=== PATIENT | female | born 1965 | race African-American/Black ===

== ENCOUNTER 2020-04-18 10:48 | Inpatient (IN) | payer OTHER ==
[2020-04-18] MEDS ORDERED: MENTHOL/PHENOL 1 EACH UD MM PRN (12:19)
[2020-04-18] MEDS ORDERED: ACETAMINOPHEN 325 MG TABLET (FP) PO PRN (12:19)
[2020-04-18] MEDS ORDERED: MAG HYDROX/AL HYDROX/SIMETH 30 ML UNIT-DOSE CUP PO PRN (12:19)
[2020-04-18] MEDS ORDERED: MAGNESIUM CITRATE 300 ML BOTTLE PO PRN (12:19)
[2020-04-18] MEDS ORDERED: MAGNESIUM HYDROX 2400MG/30ML ORAL SUSPENSION 30 ML CUP PO PRN (12:19)
[2020-04-18] MEDS ORDERED: NICOTINE POLACRILEX 2 MG GUM BUC PRN (12:19)
[2020-04-18] MEDS ORDERED: IBUPROFEN 400 MG TABLET (FP) PO PRN (12:19)
[2020-04-18] MEDS ORDERED: guaiFENesin 200 MG/10 ML 10 ML UNIT-DOSE CUPS PO PRN (12:19)
[2020-04-18] MEDS ORDERED: P-EPHED 60MG/TRIPROLIDI 2.5MG TABLET PO PRN (12:19)
[2020-04-18] MEDS ORDERED: LOPERAMIDE HCL 2 MG CAPSULE PO PRN (12:19)
[2020-04-18] MEDS ORDERED: ETANERCEPT 50 MG SQ SCH (12:30)
[2020-04-18] MEDS ORDERED: SUVOREXANT 10 MG TABLET PO PRN (12:31)
[2020-04-18] MEDS: THIAMINE HCL 100 MG TABLET (FP) PO SCH (21:11)
[2020-04-18] MEDS ORDERED: MELATONIN 5 MG TABLETS PO SCH (22:00)
[2020-04-19] MEDS ORDERED: PT OWN MED DRAWER 7, Y5N ONE ×2 (03:19→09:11)
[2020-04-19] MEDS: LEVOTHYROXINE NA 25 MCG TABLET (FP) PO SCH (06:36)
[2020-04-19] MEDS: FERROUS SO4 325 MG TABLET (FP) PO SCH (09:53)
[2020-04-19] MEDS: PRENATAL VITAMINS W/ FOLIC ACID TABLET (FP) PO SCH (09:53)
[2020-04-19] MEDS: CHOLECALCIFEROL (VIT D3) 1,000 UNIT (25 MCG) TABLET PO SCH (09:54)
[2020-04-19] MEDS: NICOTINE 14 MG/24 HOURS TOPICAL PATCH TD SCH (09:54)
[2020-04-19] MEDS ORDERED: PATIENT'S OWN MEDICATION (NON-FORMULARY) (Ferrous Sulfate [Feosol] 325 MG) PO SCH (10:00)
[2020-04-19] MEDS ORDERED: NICOTINE 7 MG/24 HOURS TOPICAL PATCH TD SCH (10:00)
[2020-04-19] MEDS: SUVOREXANT 10 MG TABLET PO PRN (21:09)
[2020-04-19] MEDS: MELATONIN 5 MG TABLETS PO SCH (21:09)
[2020-04-19] MEDS: THIAMINE HCL 100 MG TABLET (FP) PO SCH (21:09)
[2020-04-20] MEDS ORDERED: PT OWN MED DRAWER 7, Y5N ONE ×2 (05:29→08:59)
[2020-04-20] MEDS: LEVOTHYROXINE NA 25 MCG TABLET (FP) PO SCH (06:51)
[2020-04-20] MEDS: FERROUS SO4 325 MG TABLET (FP) PO SCH (10:12)
[2020-04-20] MEDS: CHOLECALCIFEROL (VIT D3) 1,000 UNIT (25 MCG) TABLET PO SCH (10:12)
[2020-04-20] MEDS: PRENATAL VITAMINS W/ FOLIC ACID TABLET (FP) PO SCH (10:12)
[2020-04-20] MEDS: NICOTINE 14 MG/24 HOURS TOPICAL PATCH TD SCH (10:12)
[2020-04-20] MEDS: NIFEdipine E.R. 30 MG TABLET PO SCH (10:14)
[2020-04-20] MEDS ORDERED: ETANERCEPT 50 MG SQ SCH (12:30)
[2020-04-20] MEDS: SUVOREXANT 10 MG TABLET PO PRN (21:15)
[2020-04-20] MEDS: THIAMINE HCL 100 MG TABLET (FP) PO SCH (21:15)
[2020-04-20] MEDS: MELATONIN 5 MG TABLETS PO SCH (23:38)
[2020-04-21] MEDS ORDERED: PT OWN MED DRAWER 7, Y5N ONE ×4 (05:25→19:29)
[2020-04-21] MEDS: LEVOTHYROXINE NA 25 MCG TABLET (FP) PO SCH (07:05)
[2020-04-21] MEDS: NICOTINE 14 MG/24 HOURS TOPICAL PATCH TD SCH (09:32)
[2020-04-21] MEDS: FERROUS SO4 325 MG TABLET (FP) PO SCH (09:32)
[2020-04-21] MEDS: PRENATAL VITAMINS W/ FOLIC ACID TABLET (FP) PO SCH (09:32)
[2020-04-21] MEDS: NIFEdipine E.R. 30 MG TABLET PO SCH (09:33)
[2020-04-21] MEDS: CHOLECALCIFEROL (VIT D3) 1,000 UNIT (25 MCG) TABLET PO SCH (09:33)
[2020-04-21] MEDS: THIAMINE HCL 100 MG TABLET (FP) PO SCH (21:32)
[2020-04-21] MEDS: MELATONIN 5 MG TABLETS PO SCH (21:32)
[2020-04-21] MEDS: hydrOXYzine PAMOATE 25 MG CAPSULE (FP) PO PRN (21:33)
[2020-04-21] MEDS: SUVOREXANT 10 MG TABLET PO PRN (21:33)
[2020-04-22] MEDS ORDERED: PT OWN MED DRAWER 7, Y5N ONE (05:26)
[2020-04-22] MEDS: LEVOTHYROXINE NA 25 MCG TABLET (FP) PO SCH (07:14)
[2020-04-22] MEDS ORDERED: ETANERCEPT 50 MG SQ SCH (10:00)
[2020-04-22] MEDS: NICOTINE 14 MG/24 HOURS TOPICAL PATCH TD SCH (10:20)
[2020-04-22] MEDS: FERROUS SO4 325 MG TABLET (FP) PO SCH (10:20)
[2020-04-22] MEDS: PRENATAL VITAMINS W/ FOLIC ACID TABLET (FP) PO SCH (10:20)
[2020-04-22] MEDS: CHOLECALCIFEROL (VIT D3) 1,000 UNIT (25 MCG) TABLET PO SCH (10:21)
[2020-04-22] MEDS: NIFEdipine E.R. 30 MG TABLET PO SCH (10:21)
[2020-04-22] MEDS: MELATONIN 5 MG TABLETS PO SCH (21:20)
[2020-04-22] MEDS: hydrOXYzine PAMOATE 25 MG CAPSULE (FP) PO PRN (21:21)
[2020-04-22] MEDS: THIAMINE HCL 100 MG TABLET (FP) PO SCH (21:21)
[2020-04-23] MEDS: LEVOTHYROXINE NA 25 MCG TABLET (FP) PO SCH (07:02)
[2020-04-23] MEDS: FERROUS SO4 325 MG TABLET (FP) PO SCH (09:52)
[2020-04-23] MEDS: NICOTINE 14 MG/24 HOURS TOPICAL PATCH TD SCH (09:52)
[2020-04-23] MEDS: CHOLECALCIFEROL (VIT D3) 1,000 UNIT (25 MCG) TABLET PO SCH (09:53)
[2020-04-23] MEDS: NIFEdipine E.R. 30 MG TABLET PO SCH (09:53)
[2020-04-23] MEDS: PRENATAL VITAMINS W/ FOLIC ACID TABLET (FP) PO SCH (09:53)
[2020-04-23] MEDS: THIAMINE HCL 100 MG TABLET (FP) PO SCH (21:04)
[2020-04-23] MEDS: hydrOXYzine PAMOATE 25 MG CAPSULE (FP) PO PRN (21:04)
[2020-04-23] MEDS: SUVOREXANT 10 MG TABLET PO PRN (21:04)
[2020-04-23] MEDS: MELATONIN 5 MG TABLETS PO SCH (21:04)
[2020-04-24] MEDS: LEVOTHYROXINE NA 25 MCG TABLET (FP) PO SCH (07:22)
[2020-04-24] MEDS ORDERED: PT OWN MED DRAWER 7, Y5N ONE (09:09)
[2020-04-24] MEDS: FERROUS SO4 325 MG TABLET (FP) PO SCH (09:50)
[2020-04-24] MEDS: PRENATAL VITAMINS W/ FOLIC ACID TABLET (FP) PO SCH (09:50)
[2020-04-24] MEDS: NICOTINE 14 MG/24 HOURS TOPICAL PATCH TD SCH (09:50)
[2020-04-24] MEDS: CHOLECALCIFEROL (VIT D3) 1,000 UNIT (25 MCG) TABLET PO SCH (09:51)
[2020-04-24] MEDS: NIFEdipine E.R. 30 MG TABLET PO SCH (09:51)
[2020-04-24] MEDS: THIAMINE HCL 100 MG TABLET (FP) PO SCH (21:09)
[2020-04-24] MEDS: MELATONIN 5 MG TABLETS PO SCH (21:09)
[2020-04-24] MEDS: SUVOREXANT 10 MG TABLET PO PRN (21:09)
[2020-04-25] MEDS: LEVOTHYROXINE NA 25 MCG TABLET (FP) PO SCH (07:06)
[2020-04-25] MEDS ORDERED: PT OWN MED DRAWER 7, Y5N ONE ×2 (08:47→10:11)
[2020-04-25] MEDS: NICOTINE 14 MG/24 HOURS TOPICAL PATCH TD SCH (10:02)
[2020-04-25] MEDS: PRENATAL VITAMINS W/ FOLIC ACID TABLET (FP) PO SCH (10:03)
[2020-04-25] MEDS: FERROUS SO4 325 MG TABLET (FP) PO SCH (10:03)
[2020-04-25] MEDS: NIFEdipine E.R. 30 MG TABLET PO SCH (10:03)
[2020-04-25] MEDS: CHOLECALCIFEROL (VIT D3) 1,000 UNIT (25 MCG) TABLET PO SCH (10:49)
[2020-04-25] MEDS: SUVOREXANT 10 MG TABLET PO PRN (21:03)
[2020-04-25] MEDS: hydrOXYzine PAMOATE 25 MG CAPSULE (FP) PO PRN (21:03)
[2020-04-25] MEDS: MELATONIN 5 MG TABLETS PO SCH (21:03)
[2020-04-25] MEDS: THIAMINE HCL 100 MG TABLET (FP) PO SCH (21:03)
[2020-04-26] MEDS: LEVOTHYROXINE NA 25 MCG TABLET (FP) PO SCH (06:27)
[2020-04-26] MEDS ORDERED: PT OWN MED DRAWER 7, Y5N ONE (09:01)
[2020-04-26] MEDS: FERROUS SO4 325 MG TABLET (FP) PO SCH (10:11)
[2020-04-26] MEDS: PRENATAL VITAMINS W/ FOLIC ACID TABLET (FP) PO SCH (10:11)
[2020-04-26] MEDS: NICOTINE 14 MG/24 HOURS TOPICAL PATCH TD SCH (10:11)
[2020-04-26] MEDS: NIFEdipine E.R. 30 MG TABLET PO SCH (10:12)
[2020-04-26] MEDS: CHOLECALCIFEROL (VIT D3) 1,000 UNIT (25 MCG) TABLET PO SCH (10:12)
[2020-04-26] MEDS: SUVOREXANT 10 MG TABLET PO PRN (21:26)
[2020-04-26] MEDS: THIAMINE HCL 100 MG TABLET (FP) PO SCH (21:27)
[2020-04-26] MEDS: MELATONIN 5 MG TABLETS PO SCH (21:27)
[2020-04-27 07:02] VITALS: TEMP 97.1
[2020-04-27 07:04] VITALS: BP 73/48; PULSE 135
[2020-04-27] MEDS: LEVOTHYROXINE NA 25 MCG TABLET (FP) PO SCH (07:10)
[2020-04-27] MEDS ORDERED: ASPIRIN 81 MG CHEWABLE TABLETS PO ONE (07:17)
[2020-04-27] MEDS ORDERED: PT OWN MED DRAWER 7, Y5N ONE (08:08)
[2020-04-27] MEDS: FERROUS SO4 325 MG TABLET (FP) PO SCH (10:50)
[2020-04-27] MEDS: NICOTINE 14 MG/24 HOURS TOPICAL PATCH TD SCH (10:50)
[2020-04-27] MEDS: PRENATAL VITAMINS W/ FOLIC ACID TABLET (FP) PO SCH (10:51)
[2020-04-27] MEDS: NIFEdipine E.R. 30 MG TABLET PO SCH (10:51)
[2020-04-27] MEDS: CHOLECALCIFEROL (VIT D3) 1,000 UNIT (25 MCG) TABLET PO SCH (10:51)
== END 2020-04-27 15:48 | disposition short-term general hospital (02) | DRG 895 ==
LOC: YASAS 10:48 → Y3E 10:50
PROVIDERS: ADMIT Allergy & Immunology; ATTEND Allergy & Immunology
PROC: HZ42ZZZ Group Counseling for Substance Abuse Treatment, Cognitive-Behavioral (ICD-10-PCS; principal; 2020-04-18)
DX: F10.20 Alcohol dependence, uncomplicated (principal); F17.210 Nicotine dependence, cigarettes, uncomplicated; I10 Essential (primary) hypertension; E03.9 Hypothyroidism, unspecified; D64.9 Anemia, unspecified; M06.9 Rheumatoid arthritis, unspecified; K76.0 Fatty (change of) liver, not elsewhere classified; R94.31 Abnormal electrocardiogram [ECG] [EKG]; I95.9 Hypotension, unspecified; R53.1 Weakness; Z87.01 Personal history of pneumonia (recurrent)
CPT/HCPCS: 82962; 93005; 93010

== ENCOUNTER 2020-04-27 08:05 | Inpatient (IN) | payer OTHER ==
[2020-04-27] MEDS ORDERED: SODIUM CHLORIDE 1,769 ML IV ONE (08:38)
[2020-04-27] MEDS ORDERED: ACETAMINOPHEN 1000 MG/100 ML VIAL (NON FORMULARY) IVPB ONE (08:39)
[2020-04-27] MEDS ORDERED: ACETAMINOPHEN INJECTION 100 ML IVPB ONE (08:41)
[2020-04-27 09:39] LABS: BASO % 0.3 % (0-2.0); EOS % 0.7 % (0-4.5); HEMATOCRIT 36.3 % (32.4-45.2); HEMOGLOBIN 11.7 GM/dL (10.7-15.3); LYMPH % 5.8 % (8-40); MCH 27.6 pg (25.7-33.7); MCHC 32.2 g/dl (32.0-36.0); MEAN CELL VOLUME 85.7 fl (80-96); MEAN PLT VOLUME 8.6 fl (7.5-11.1); NEUT % 89.2 % (42.8-82.8); PLATELET COUNT 274 K/MM3 (134-434); RBC 4.23 M/mm3 (3.60-5.2); WHITE BLOOD COUNT 5.7 K/mm3 (4.0-10.0)
[2020-04-27 09:48] LABS: INR 0.98 (0.83-1.09); PH,URINE 8.5 (5.0-8.0); PROTHROMBIN TIME (PATIENT) 12.1 SEC (9.7-13.0); URINE APPEARANCE CLEAR; URINE BILIRUBIN NEGATIVE (NEGATIVE); URINE COLOR YELLOW; URINE GLUCOSE (UA) NEGATIVE (NEGATIVE); URINE KETONE NEGATIVE (NEGATIVE); URINE LEUK ESTERASE NEGATIVE (NEGATIVE); URINE NITRITE NEGATIVE (NEGATIVE); URINE PROTEIN NEGATIVE (NEGATIVE); URINE UROBILINOGEN 0.2 mg/dL (0.2-1.0)
[2020-04-27 09:50] LABS: ACTIVATED PTT 29.8 SECONDS (25.2-36.5)
[2020-04-27 10:09] LABS: CHLORIDE 104 mmol/L (98-107); POTASSIUM 4.4 mmol/L (3.5-5.1); SODIUM 136 mmol/L (136-145)
[2020-04-27 10:11] LABS: ALBUMIN 3.1 g/dl (3.4-5.0); ANION GAP 6 MMOL/L (8-16); CALCIUM 9.1 mg/dL (8.5-10.1); CO2 26 mmol/L (21-32); GLUCOSE,RANDOM 116 mg/dL (74-106)
[2020-04-27 10:12] LABS: BLOOD UREA NITROGEN 15.7 mg/dL (7-18)
[2020-04-27 10:14] LABS: SGPT/ALT 33 U/L (13-61)
[2020-04-27 10:15] LABS: SGOT/AST 21 U/L (15-37)
[2020-04-27 10:16] LABS: BILIRUBIN,TOTAL 0.3 mg/dL (0.2-1); TOT PROT 7.2 g/dl (6.4-8.2)
[2020-04-27 10:19] LABS: LDH 175 U/L (84-246)
[2020-04-27 10:24] LABS: ALK PHOS 133 U/L (45-117)
[2020-04-27 11:28] LABS: VENOUS BASE EXCESS -1.3 mmol/L (-2-2); VENOUS O2 SATURATION 84.9 % (70-80); VENOUS PH 7.428 (7.310-7.410)
[2020-04-27] MEDS ORDERED: VANCOMYCIN 1 GM in D5W (PRE-DOCKED) 1,000 MG/250 ML IVPB ONE (13:34)
[2020-04-27] MEDS ORDERED: CEFTRIAXONE 1 GM in DEXTROSE 5%-WATER - 100 ML IVPB ONE (13:34)
[2020-04-27] MEDS ORDERED: CEFTRIAXONE 2 GM-D5W BAG 2 GM/50 ML BAG IVPB ONE (13:35)
[2020-04-27] MEDS ORDERED: LACTATED RINGERS SOLUTION 1000 ML INFUS.BAG IV ONE (13:37)
[2020-04-27] MEDS ORDERED: SODIUM CHLORIDE 1,000 ML IV SCH ×2 (14:45→16:28)
[2020-04-27] MEDS ORDERED: VANCOMYCIN 1 GRAM (PRE-DOCKED) 1,000 MG/250 ML BAG IVPB ONE (15:00)
[2020-04-27] MEDS ORDERED: CEFTRIAXONE 2 GM/100 ML BAG IVPB ONE (15:00)
[2020-04-27] MEDS ORDERED: CEFTRIAXONE 1 GM/50 ML BAG ONE (15:01)
[2020-04-27] MEDS ORDERED: ACETAMINOPHEN 325 MG TABLET (FP) PO PRN (16:42)
[2020-04-27 17:01] VITALS: BMI 22.1
[2020-04-27] MEDS: SODIUM CHLORIDE 1,000 ML IV SCH (17:46)
[2020-04-27] MEDS ORDERED: PIPERACILLIN/TAZOB 3.375 GM 3.375 GM in DEXTROSE 5%-WATER - 50 ML IVPB SCH ×2 (18:00→18:10)
[2020-04-28] MEDS: ENOXAPARIN NA (PORCINE) 40 MG/0.4 ML DISP.SYRIN SQ SCH (09:10)
[2020-04-28] MEDS: SODIUM CHLORIDE 1,000 ML IV SCH ×2 (09:11→23:20)
[2020-04-28] MEDS ORDERED: VANCOMYCIN 1 GM in D5W (PRE-DOCKED) 1,000 MG/250 ML IVPB SCH (10:00)
[2020-04-28] MEDS ORDERED: VANCOMYCIN 1,000 MG in DEXTROSE 5%-WATER - 250 ML IVPB SCH (10:00)
[2020-04-28 11:51] LABS: BASO % 0.7 % (0-2.0); EOS % 5.3 % (0-4.5); HEMATOCRIT 31.3 % (32.4-45.2); HEMOGLOBIN 10.3 GM/dL (10.7-15.3); LYMPH % 50.2 % (8-40); MCH 28.5 pg (25.7-33.7); MCHC 32.9 g/dl (32.0-36.0); MEAN CELL VOLUME 86.5 fl (80-96); MEAN PLT VOLUME 8.4 fl (7.5-11.1); MONO % 9.1 % (3.8-10.2); NEUT % 34.7 % (42.8-82.8); PLATELET COUNT 212 K/MM3 (134-434); RBC 3.62 M/mm3 (3.60-5.2); RDW 19.7 % (11.6-15.6); WHITE BLOOD COUNT 3.2 K/mm3 (4.0-10.0)
[2020-04-28 12:33] LABS: ALBUMIN 2.8 g/dl (3.4-5.0); CALCIUM 8.9 mg/dL (8.5-10.1)
[2020-04-28 12:34] LABS: BLOOD UREA NITROGEN 12.7 mg/dL (7-18)
[2020-04-28 12:37] LABS: CREATININE 0.7 mg/dL (0.55-1.3); PHOSPHOROUS 4.4 mg/dL (2.5-4.9)
[2020-04-28 12:38] LABS: BILIRUBIN,TOTAL 0.6 mg/dL (0.2-1)
[2020-04-28 13:46] LABS: ERYTHROCYTE SEDIMENTATION RATE 80 mm/hr (0-30)
[2020-04-28] MEDS ORDERED: VANCOMYCIN 1 GRAM (PRE-DOCKED) 1,000 MG/250 ML BAG IVPB SCH (15:00)
[2020-04-28] MEDS ORDERED: SUVOREXANT 10 MG TABLET PO ONE (23:17)
[2020-04-28] MEDS ORDERED: MELATONIN 5 MG TABLETS PO ONE (23:22)
[2020-04-29 07:41] LABS: BASO % 0.6 % (0-2.0); EOS % 5.8 % (0-4.5); HEMATOCRIT 31.5 % (32.4-45.2); HEMOGLOBIN 10.2 GM/dL (10.7-15.3); LYMPH % 64.8 % (8-40); MCHC 32.5 g/dl (32.0-36.0); MEAN CELL VOLUME 86.1 fl (80-96); MEAN PLT VOLUME 8.5 fl (7.5-11.1); MONO % 12.6 % (3.8-10.2); NEUT % 16.2 % (42.8-82.8); PLATELET COUNT 211 K/MM3 (134-434); RBC 3.65 M/mm3 (3.60-5.2); RDW 19.5 % (11.6-15.6); WHITE BLOOD COUNT 2.9 K/mm3 (4.0-10.0)
[2020-04-29 07:56] LABS: POTASSIUM 3.9 mmol/L (3.5-5.1)
[2020-04-29 07:58] LABS: CALCIUM 9.3 mg/dL (8.5-10.1)
[2020-04-29 07:59] LABS: BLOOD UREA NITROGEN 11.2 mg/dL (7-18)
[2020-04-29 08:02] LABS: CREATININE 0.8 mg/dL (0.55-1.3)
[2020-04-29] MEDS: ENOXAPARIN NA (PORCINE) 40 MG/0.4 ML DISP.SYRIN SQ SCH (09:01)
[2020-04-29] MEDS: NICOTINE 7 MG/24 HOURS TOPICAL PATCH TD SCH (09:01)
[2020-04-29 09:57] LABS: ANISOCYTOSIS 1+; MACROCYTOSIS 1+; PLATELET ESTIMATE NORMAL
[2020-04-29] MEDS ORDERED: NICOTINE 7 MG/24 HOURS TOPICAL PATCH TD SCH (10:00)
[2020-04-29] MEDS ORDERED: PANTOPRAZOLE SODIUM 80 MG in SODIUM CHLORIDE 100 ML IVPB SCH (15:41)
[2020-04-29] MEDS: SODIUM CHLORIDE 1,000 ML IV SCH ×2 (17:11→22:35)
[2020-04-29] MEDS ORDERED: MELATONIN 5 MG TABLETS PO ONE (22:27)
[2020-04-30] MEDS: SODIUM CHLORIDE 1,000 ML IV SCH (06:34)
[2020-04-30] MEDS: ENOXAPARIN NA (PORCINE) 40 MG/0.4 ML DISP.SYRIN SQ SCH (09:29)
[2020-04-30] MEDS: NICOTINE 7 MG/24 HOURS TOPICAL PATCH TD SCH (09:30)
[2020-04-30 10:34] VITALS: TEMP 98.7
[2020-04-30 11:52] LABS: BASO % 0.6 % (0-2.0); EOS % 2.8 % (0-4.5); HEMATOCRIT 33.1 % (32.4-45.2); HEMOGLOBIN 10.9 GM/dL (10.7-15.3); LYMPH % 56.2 % (8-40); MCH 28.2 pg (25.7-33.7); MEAN CELL VOLUME 85.4 fl (80-96); MEAN PLT VOLUME 8.8 fl (7.5-11.1); MONO % 9.1 % (3.8-10.2); NEUT % 31.3 % (42.8-82.8); PLATELET COUNT 239 K/MM3 (134-434); RBC 3.88 M/mm3 (3.60-5.2); WHITE BLOOD COUNT 4.4 K/mm3 (4.0-10.0)
[2020-04-30 14:17] VITALS: BP 112/75; PULSE 76
== END 2020-04-30 14:52 | disposition other institution (70) | DRG 864 ==
LOC: JER 08:05 → JERBED 14:16 → J6S 16:13
PROVIDERS: ATTEND Internal Medicine
DX: R50.83 Postvaccination fever (principal); E87.2 Acidosis; T50.B95A Adverse effect of other viral vaccines, initial encounter; T50.A95A Adverse effect of other bacterial vaccines, initial encounter; F10.20 Alcohol dependence, uncomplicated; D70.9 Neutropenia, unspecified; M06.9 Rheumatoid arthritis, unspecified; K76.0 Fatty (change of) liver, not elsewhere classified; E03.9 Hypothyroidism, unspecified; D64.9 Anemia, unspecified; R00.0 Tachycardia, unspecified; R42 Dizziness and giddiness
CPT/HCPCS: 36415; 71045-TC-FY; 71250-TC; 71275-TC; 80048; 80053; 81003; 82728; 82803; 83605; 83615; 83735; 84100; 84439; 84443; 84484; 85025; 85379; 85610; 85651; 85730; 86038; 86140; 86431; 86769; 87040; 87086; 87804; 93005; 93010; 93306-TC; 93970-TC; 99285-25; C9803; J0131; U0003

== ENCOUNTER 2020-04-30 15:00 | Inpatient (IN) | payer OTHER ==
[2020-04-30] MEDS ORDERED: ACETAMINOPHEN 325 MG TABLET (FP) PO PRN (15:26)
[2020-04-30] MEDS ORDERED: NICOTINE POLACRILEX 2 MG GUM BC PRN (15:26)
[2020-04-30] MEDS ORDERED: IBUPROFEN 400 MG TABLET (FP) PO PRN (15:26)
[2020-04-30] MEDS ORDERED: guaiFENesin 200 MG/10 ML 10 ML UNIT-DOSE CUPS PO PRN (15:26)
[2020-04-30] MEDS ORDERED: MAG HYDROX/AL HYDROX/SIMETH 30 ML UNIT-DOSE CUP PO PRN (15:26)
[2020-04-30] MEDS ORDERED: LOPERAMIDE HCL 2 MG CAPSULE PO PRN (15:26)
[2020-04-30] MEDS ORDERED: MAGNESIUM CITRATE 300 ML BOTTLE PO PRN (15:26)
[2020-04-30] MEDS ORDERED: P-EPHED 60MG/TRIPROLIDI 2.5MG TABLET PO PRN (15:26)
[2020-04-30] MEDS ORDERED: MAGNESIUM HYDROX 2400MG/30ML ORAL SUSPENSION 30 ML CUP PO PRN (15:26)
[2020-04-30] MEDS: THIAMINE HCL 100 MG TABLET (FP) PO SCH (21:08)
[2020-04-30] MEDS: MELATONIN 5 MG TABLETS PO SCH (21:08)
[2020-04-30] MEDS ORDERED: MELATONIN 5 MG TABLETS PO SCH (22:00)
[2020-05-01] MEDS: LEVOTHYROXINE NA 25 MCG TABLET (FP) PO SCH (06:43)
[2020-05-01] MEDS: PRENATAL VITAMINS W/ FOLIC ACID TABLET (FP) PO SCH (10:40)
[2020-05-01] MEDS: FERROUS SO4 325 MG TABLET (FP) PO SCH (10:42)
[2020-05-01] MEDS: NICOTINE 14 MG/24 HOURS TOPICAL PATCH TD SCH (10:42)
[2020-05-01] MEDS: NIFEdipine E.R. 30 MG TABLET PO SCH (10:42)
[2020-05-01] MEDS: CHOLECALCIFEROL (VIT D3) 1,000 UNIT (25 MCG) TABLET PO SCH (10:43)
[2020-05-01] MEDS: ETANERCEPT 50 MG SQ SCH (12:09)
[2020-05-01] MEDS: THIAMINE HCL 100 MG TABLET (FP) PO SCH (21:20)
[2020-05-01] MEDS: MELATONIN 5 MG TABLETS PO SCH (21:21)
[2020-05-01] MEDS: SUVOREXANT 10 MG TABLET PO PRN (21:22)
[2020-05-02] MEDS: LEVOTHYROXINE NA 25 MCG TABLET (FP) PO SCH (06:47)
[2020-05-02] MEDS: NICOTINE 14 MG/24 HOURS TOPICAL PATCH TD SCH (09:56)
[2020-05-02] MEDS: PRENATAL VITAMINS W/ FOLIC ACID TABLET (FP) PO SCH (09:57)
[2020-05-02] MEDS: FERROUS SO4 325 MG TABLET (FP) PO SCH (09:57)
[2020-05-02] MEDS: NIFEdipine E.R. 30 MG TABLET PO SCH (09:58)
[2020-05-02] MEDS: CHOLECALCIFEROL (VIT D3) 1,000 UNIT (25 MCG) TABLET PO SCH (09:58)
[2020-05-02] MEDS: MELATONIN 5 MG TABLETS PO SCH (21:07)
[2020-05-02] MEDS: SUVOREXANT 10 MG TABLET PO PRN (21:07)
[2020-05-02] MEDS: THIAMINE HCL 100 MG TABLET (FP) PO SCH (21:07)
[2020-05-03] MEDS: LEVOTHYROXINE NA 25 MCG TABLET (FP) PO SCH (06:40)
[2020-05-03] MEDS: NIFEdipine E.R. 30 MG TABLET PO SCH (09:10)
[2020-05-03] MEDS: CHOLECALCIFEROL (VIT D3) 1,000 UNIT (25 MCG) TABLET PO SCH (09:10)
[2020-05-03] MEDS: NICOTINE 14 MG/24 HOURS TOPICAL PATCH TD SCH (09:10)
[2020-05-03] MEDS: FERROUS SO4 325 MG TABLET (FP) PO SCH (09:10)
[2020-05-03] MEDS: PRENATAL VITAMINS W/ FOLIC ACID TABLET (FP) PO SCH (09:10)
[2020-05-03] MEDS ORDERED: PT OWN MED DRAWER 7, Y5N ONE (19:34)
[2020-05-03] MEDS: SUVOREXANT 15 MG TABLET PO PRN (21:30)
[2020-05-03] MEDS: THIAMINE HCL 100 MG TABLET (FP) PO SCH (21:30)
[2020-05-03] MEDS: MELATONIN 5 MG TABLETS PO SCH (21:31)
[2020-05-04] MEDS: LEVOTHYROXINE NA 25 MCG TABLET (FP) PO SCH (07:05)
[2020-05-04] MEDS: NICOTINE 14 MG/24 HOURS TOPICAL PATCH TD SCH (09:49)
[2020-05-04] MEDS: FERROUS SO4 325 MG TABLET (FP) PO SCH (09:49)
[2020-05-04] MEDS: PRENATAL VITAMINS W/ FOLIC ACID TABLET (FP) PO SCH (09:50)
[2020-05-04] MEDS: NIFEdipine E.R. 30 MG TABLET PO SCH (09:50)
[2020-05-04] MEDS: CHOLECALCIFEROL (VIT D3) 1,000 UNIT (25 MCG) TABLET PO SCH (09:50)
[2020-05-04] MEDS: MELATONIN 5 MG TABLETS PO SCH (21:09)
[2020-05-04] MEDS: THIAMINE HCL 100 MG TABLET (FP) PO SCH (21:09)
[2020-05-04] MEDS: SUVOREXANT 15 MG TABLET PO PRN (21:10)
[2020-05-05] MEDS: LEVOTHYROXINE NA 25 MCG TABLET (FP) PO SCH (06:36)
[2020-05-05] MEDS: CHOLECALCIFEROL (VIT D3) 1,000 UNIT (25 MCG) TABLET PO SCH (10:29)
[2020-05-05] MEDS: PRENATAL VITAMINS W/ FOLIC ACID TABLET (FP) PO SCH (10:29)
[2020-05-05] MEDS: FERROUS SO4 325 MG TABLET (FP) PO SCH (10:29)
[2020-05-05] MEDS: NICOTINE 14 MG/24 HOURS TOPICAL PATCH TD SCH (10:29)
[2020-05-05] MEDS: NIFEdipine E.R. 30 MG TABLET PO SCH (10:29)
[2020-05-05] MEDS: MELATONIN 5 MG TABLETS PO SCH (21:55)
[2020-05-05] MEDS: THIAMINE HCL 100 MG TABLET (FP) PO SCH (21:55)
[2020-05-05] MEDS: SUVOREXANT 15 MG TABLET PO PRN (21:56)
[2020-05-06] MEDS: LEVOTHYROXINE NA 25 MCG TABLET (FP) PO SCH (06:35)
[2020-05-06] MEDS: hydrOXYzine PAMOATE 25 MG CAPSULE (FP) PO PRN (09:41)
[2020-05-06] MEDS: CHOLECALCIFEROL (VIT D3) 1,000 UNIT (25 MCG) TABLET PO SCH (09:41)
[2020-05-06] MEDS: FERROUS SO4 325 MG TABLET (FP) PO SCH (09:41)
[2020-05-06] MEDS: PRENATAL VITAMINS W/ FOLIC ACID TABLET (FP) PO SCH (09:41)
[2020-05-06] MEDS: NIFEdipine E.R. 30 MG TABLET PO SCH (09:42)
[2020-05-06] MEDS: NICOTINE 14 MG/24 HOURS TOPICAL PATCH TD SCH (09:42)
[2020-05-06] MEDS: THIAMINE HCL 100 MG TABLET (FP) PO SCH (21:10)
[2020-05-06] MEDS: MELATONIN 5 MG TABLETS PO SCH (21:10)
[2020-05-06] MEDS: SUVOREXANT 15 MG TABLET PO PRN (22:47)
[2020-05-07] MEDS: LEVOTHYROXINE NA 25 MCG TABLET (FP) PO SCH (06:39)
[2020-05-07] MEDS: NIFEdipine E.R. 30 MG TABLET PO SCH (10:19)
[2020-05-07] MEDS: hydrOXYzine PAMOATE 25 MG CAPSULE (FP) PO PRN (10:19)
[2020-05-07] MEDS: CHOLECALCIFEROL (VIT D3) 1,000 UNIT (25 MCG) TABLET PO SCH (10:19)
[2020-05-07] MEDS: PRENATAL VITAMINS W/ FOLIC ACID TABLET (FP) PO SCH (10:19)
[2020-05-07] MEDS: NICOTINE 14 MG/24 HOURS TOPICAL PATCH TD SCH (10:20)
[2020-05-07] MEDS: FERROUS SO4 325 MG TABLET (FP) PO SCH (10:20)
[2020-05-07] MEDS: NICOTINE 21 MG/24 HOURS TOPICAL PATCH TD SCH (11:00)
[2020-05-07] MEDS: SUVOREXANT 15 MG TABLET PO PRN (21:57)
[2020-05-07] MEDS: MELATONIN 5 MG TABLETS PO SCH (21:57)
[2020-05-07] MEDS: THIAMINE HCL 100 MG TABLET (FP) PO SCH (21:57)
[2020-05-08] MEDS: LEVOTHYROXINE NA 25 MCG TABLET (FP) PO SCH (06:29)
[2020-05-08] MEDS ORDERED: PT OWN MED DRAWER 7, Y5N ONE ×2 (09:15→10:59)
[2020-05-08] MEDS: NICOTINE 21 MG/24 HOURS TOPICAL PATCH TD SCH (10:21)
[2020-05-08] MEDS: PRENATAL VITAMINS W/ FOLIC ACID TABLET (FP) PO SCH (10:21)
[2020-05-08] MEDS: FERROUS SO4 325 MG TABLET (FP) PO SCH (10:21)
[2020-05-08] MEDS: CHOLECALCIFEROL (VIT D3) 1,000 UNIT (25 MCG) TABLET PO SCH (10:21)
[2020-05-08] MEDS: NIFEdipine E.R. 30 MG TABLET PO SCH (10:22)
[2020-05-08] MEDS ORDERED: NICOTINE 21 MG/24 HOURS TOPICAL PATCH TD ONE (10:47)
[2020-05-08] MEDS: ETANERCEPT 50 MG SQ SCH (12:53)
[2020-05-08] MEDS: SUVOREXANT 15 MG TABLET PO PRN (21:13)
[2020-05-08] MEDS: MELATONIN 5 MG TABLETS PO SCH (21:13)
[2020-05-08] MEDS: THIAMINE HCL 100 MG TABLET (FP) PO SCH (21:13)
[2020-05-09] MEDS: LEVOTHYROXINE NA 25 MCG TABLET (FP) PO SCH (06:28)
[2020-05-09] MEDS: PRENATAL VITAMINS W/ FOLIC ACID TABLET (FP) PO SCH (10:35)
[2020-05-09] MEDS: FERROUS SO4 325 MG TABLET (FP) PO SCH (10:36)
[2020-05-09] MEDS: NICOTINE 21 MG/24 HOURS TOPICAL PATCH TD SCH (10:36)
[2020-05-09] MEDS: CHOLECALCIFEROL (VIT D3) 1,000 UNIT (25 MCG) TABLET PO SCH (10:36)
[2020-05-09] MEDS: NIFEdipine E.R. 30 MG TABLET PO SCH (10:36)
[2020-05-09] MEDS: THIAMINE HCL 100 MG TABLET (FP) PO SCH (21:19)
[2020-05-09] MEDS: MELATONIN 5 MG TABLETS PO SCH (21:19)
[2020-05-09] MEDS: SUVOREXANT 15 MG TABLET PO PRN (21:20)
[2020-05-10] MEDS ORDERED: PT OWN MED DRAWER 7, Y5N ONE ×2 (03:16→09:23)
[2020-05-10] MEDS: LEVOTHYROXINE NA 25 MCG TABLET (FP) PO SCH (06:31)
[2020-05-10] MEDS: FERROUS SO4 325 MG TABLET (FP) PO SCH (10:35)
[2020-05-10] MEDS: CHOLECALCIFEROL (VIT D3) 1,000 UNIT (25 MCG) TABLET PO SCH (10:36)
[2020-05-10] MEDS: PRENATAL VITAMINS W/ FOLIC ACID TABLET (FP) PO SCH (10:36)
[2020-05-10] MEDS: NIFEdipine E.R. 30 MG TABLET PO SCH (10:36)
[2020-05-10] MEDS: NICOTINE 21 MG/24 HOURS TOPICAL PATCH TD SCH (10:36)
[2020-05-10] MEDS: MELATONIN 5 MG TABLETS PO SCH (21:05)
[2020-05-10] MEDS: THIAMINE HCL 100 MG TABLET (FP) PO SCH (21:05)
[2020-05-10] MEDS: SUVOREXANT 15 MG TABLET PO PRN (21:05)
[2020-05-11] MEDS ORDERED: PT OWN MED DRAWER 7, Y5N ONE ×4 (03:09→09:18)
[2020-05-11] MEDS: LEVOTHYROXINE NA 25 MCG TABLET (FP) PO SCH (06:42)
[2020-05-11] MEDS: NIFEdipine E.R. 30 MG TABLET PO SCH (10:15)
[2020-05-11] MEDS: CHOLECALCIFEROL (VIT D3) 1,000 UNIT (25 MCG) TABLET PO SCH (10:15)
[2020-05-11] MEDS: NICOTINE 21 MG/24 HOURS TOPICAL PATCH TD SCH (10:15)
[2020-05-11] MEDS: FERROUS SO4 325 MG TABLET (FP) PO SCH (10:15)
[2020-05-11] MEDS: PRENATAL VITAMINS W/ FOLIC ACID TABLET (FP) PO SCH (10:16)
[2020-05-11] MEDS: SUVOREXANT 15 MG TABLET PO PRN (21:39)
[2020-05-11] MEDS: THIAMINE HCL 100 MG TABLET (FP) PO SCH (21:39)
[2020-05-11] MEDS: MELATONIN 5 MG TABLETS PO SCH (21:39)
[2020-05-12] MEDS: LEVOTHYROXINE NA 25 MCG TABLET (FP) PO SCH (06:24)
[2020-05-12] MEDS ORDERED: PT OWN MED DRAWER 7, Y5N ONE (09:07)
[2020-05-12] MEDS: CHOLECALCIFEROL (VIT D3) 1,000 UNIT (25 MCG) TABLET PO SCH (10:05)
[2020-05-12] MEDS: NIFEdipine E.R. 30 MG TABLET PO SCH (10:05)
[2020-05-12] MEDS: PRENATAL VITAMINS W/ FOLIC ACID TABLET (FP) PO SCH (10:05)
[2020-05-12] MEDS: NICOTINE 21 MG/24 HOURS TOPICAL PATCH TD SCH (10:05)
[2020-05-12] MEDS: FERROUS SO4 325 MG TABLET (FP) PO SCH (10:05)
[2020-05-12] MEDS: MELATONIN 5 MG TABLETS PO SCH (21:09)
[2020-05-12] MEDS: SUVOREXANT 15 MG TABLET PO PRN (21:09)
[2020-05-12] MEDS: THIAMINE HCL 100 MG TABLET (FP) PO SCH (21:09)
[2020-05-12] MEDS ORDERED: SUVOREXANT 15 MG TABLET PO PRN (22:00)
[2020-05-13] MEDS: LEVOTHYROXINE NA 25 MCG TABLET (FP) PO SCH (06:30)
[2020-05-13] MEDS ORDERED: PT OWN MED DRAWER 7, Y5N ONE (09:00)
[2020-05-13] MEDS: FERROUS SO4 325 MG TABLET (FP) PO SCH (10:08)
[2020-05-13] MEDS: NICOTINE 21 MG/24 HOURS TOPICAL PATCH TD SCH (10:08)
[2020-05-13] MEDS: PRENATAL VITAMINS W/ FOLIC ACID TABLET (FP) PO SCH (10:08)
[2020-05-13] MEDS: CHOLECALCIFEROL (VIT D3) 1,000 UNIT (25 MCG) TABLET PO SCH (10:09)
[2020-05-13] MEDS: NIFEdipine E.R. 30 MG TABLET PO SCH (10:09)
[2020-05-13 20:41] VITALS: TEMP 97.5
[2020-05-13] MEDS: THIAMINE HCL 100 MG TABLET (FP) PO SCH (21:35)
[2020-05-13] MEDS: MELATONIN 5 MG TABLETS PO SCH (21:35)
[2020-05-14] MEDS: LEVOTHYROXINE NA 25 MCG TABLET (FP) PO SCH (06:34)
[2020-05-14 07:06] VITALS: BP 100/71; PULSE 90
[2020-05-14] MEDS ORDERED: PT OWN MED DRAWER 7, Y5N ONE (09:28)
[2020-05-14] MEDS: FERROUS SO4 325 MG TABLET (FP) PO SCH (09:48)
[2020-05-14] MEDS: NIFEdipine E.R. 30 MG TABLET PO SCH (09:48)
[2020-05-14] MEDS: CHOLECALCIFEROL (VIT D3) 1,000 UNIT (25 MCG) TABLET PO SCH (09:48)
[2020-05-14] MEDS: PRENATAL VITAMINS W/ FOLIC ACID TABLET (FP) PO SCH (09:48)
[2020-05-14] MEDS: NICOTINE 21 MG/24 HOURS TOPICAL PATCH TD SCH (09:49)
== END 2020-05-14 10:55 | disposition home or self-care (01) | DRG 895 ==
LOC: YASAS 15:00 → Y3E 17:02 → Y3W 05-04 13:44
PROVIDERS: ADMIT Allergy & Immunology; ATTEND Allergy & Immunology
PROC: HZ42ZZZ Group Counseling for Substance Abuse Treatment, Cognitive-Behavioral (ICD-10-PCS; principal; 2020-04-30)
DX: F10.20 Alcohol dependence, uncomplicated (principal); A41.9 Sepsis, unspecified organism; F17.210 Nicotine dependence, cigarettes, uncomplicated; D64.9 Anemia, unspecified; E03.9 Hypothyroidism, unspecified; G47.00 Insomnia, unspecified; I10 Essential (primary) hypertension; K76.0 Fatty (change of) liver, not elsewhere classified; R50.9 Fever, unspecified; Z56.0 Unemployment, unspecified